=== PATIENT | female | born 1980 | race Caucasian/White ===

== ENCOUNTER 2017-01-24 03:50 | Emergency (ER) | payer MEDICAID ==
[~2017-01-24] VITALS: Ht 157.5 cm; Wt 68.0 kg
[2017-01-24 04:25] VITALS: BP 113/76
[2017-01-24 04:45] LABS: DAU SCREEN DISCLAIMER
[2017-01-24] MEDS ORDERED: LAMO5TB.2 PO (04:46)
[2017-01-24 05:05] LABS: BLOOD UREA NITROGEN 14 mg/dL (7-18)
[2017-01-24 05:13] LABS: ACETAMINOPHEN < 2 mcg/mL (10-30)
== END 2017-01-24 07:24 | disposition home or self-care (01) ==
LOC: ED 05:13
DX: F41.1 Generalized anxiety disorder (principal)
CPT/HCPCS: 36415; 80048; 80307; 80329; 82040; 85025; G0480

== ENCOUNTER 2019-10-13 08:07 | Emergency (ER) | payer MEDICAID ==
[~2019-10-13] VITALS: Ht 157.5 cm; Wt 71.9 kg
[~2019-10-13 08:07] MED LIST: LAMO5TB.2 PO
[2019-10-13 08:11] VITALS: BP 122/74
--- NOTE | 2019-10-13 08:25 | NUR ---
MATERNAL FETAL PHYSICIAN: PT AMBULATORY TO ROOM FROM LOBBY
--- NOTE | 2019-10-13 08:36 | NUR ---
PT HERE FOR COUGH THAT STARTED A FEW DAYS AGO. ALSO STATES SHE IS WORRIED ABOUT MAYBE HAVING A TICK ON HER BACK AND ON HER LEG. PT STATES SHE LIVES IN A MOTEL THAT DOES NOT HAVE BED BUGS. ONE SMALL BUMP NOTED ON LEFT LEG AND SOME BUMPS NOTED ON BACK THAT PERHAPS LOOK MORE LIKE ACNE. NO BED BUG BITES NOTED. ONE BRUISE ON LEFT UPPER ARM THAT PT STATES IS "FROM THE FERMENTOLOGIST." THIS RN ASKED PT IF SHE IS SAFE WHERE SHE IS LIVING- PT STATES SHE IS. PT RESTING ON PAULARNEY. NADN. PROVIDED WITH WARM BLANKET.
[2019-10-13] MEDS ORDERED: LURA20TA PO (08:40)
--- NOTE | 2019-10-13 09:27 | NUR ---
PT RESTING ON GURNEY. PATRICK
--- NOTE | 2019-10-13 09:28 | NUR ---
PT UP FOR RECHECK.
--- NOTE | 2019-10-13 09:41 | NUR ---
PT AWARE OF DC PLAN. GETTING DRESSED NOW.
--- NOTE | 2019-10-13 09:50 | NUR ---
REPORT GIVEN TO MAYELA ORTIZ AND MAYELA PIERCE.
--- NOTE | 2019-10-13 09:54 | NUR ---
REPORT RECEIVED FROM MAYELA MEHTA. [facility]
== END 2019-10-13 10:09 | disposition home or self-care (01) ==
LOC: ED 08:42
DX: J06.9 Acute upper respiratory infection, unspecified (principal)
CPT/HCPCS: 71046; 99283